=== PATIENT | female | born 1985 | race Caucasian/White ===

== ENCOUNTER 2024-12-15 17:41 | Emergency (ER) | payer SELFPAY ==
--- OUTSIDE RECORDS SUMMARY | 2024-09-23 09:00 | XMS_ITS ---
Author Organization [facility] Address [address] [place], [place] [id number] Care Team Providers Care Exchange Mechanic Name Role Phone Alisha Zaldivar Primary Care Provider Osorio Camarillo Unavailable [phone] Bertha Shipley Unavailable [phone] REASON FOR VISIT Thyroid Concerns Social History Sex Assigned At : Social History Observation Description Sex Assigned At Female Encounters Encounter Location Date Provider Diagnosis [address] [id number] 09/23 Bertha Shipley Plan Of Treatment No Information Progress Notes * Ijeoma STEPHENS MDOB:10/1984 (39 yo F)Acc No.[id number]:09/23/2024 Patient: Zaki Ijeoma DINH Provider: Taran Shipley :1985 A ge:39 Y S ex:Female Date:09/23/2024 Address:[facility] [address] [id number] Pcp:Alisha Zaldivar Subjective: * Chief Complaints: * 1 . Thyroid Concerns. * Medical History: Objective: * Vitals: Assessment: Plan: * Treatment: * Billing Information: * Visit Code: * Procedure Codes: * Electronic signature of CARLOS Brown on 12/15/2024 at 05:51 PM EDT Sign off status: Pending * Provider: Taran Shipley Date: 0 09/23/2024 Generated for Noah aguilar/Antelmo/eTransmitting on: 0 12/15/2024 05:51 PM EDT
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
[2024-12-15 17:45] VITALS: BP 145/90; PULSE 78; TEMP 38.8; O2SAT 98; BMI 52.5
--- OUTSIDE RECORDS SUMMARY | 2024-12-15 17:51 | XMS_ITS | Encounter Summary ---
Author Organization [facility] Address [id number] [address] [place] [address] Care Team Providers Care Remelt Sugar Boiler Name Role Phone Bertha Shipley STATE EPIDEMIOLOGIST-AERONAUTICS COMMISSION DIRECTOR Primary Care Provider +1- [phone] Encounter Details Date Type Department Care Team (Latest Contact Info) Description 12/10/2024 Travel Social History Tobacco Use Types Packs/Day Years [...] often do you attend chur ch or catholic services? Patient declined 03/09/2021 Do you belong to any clubs o r organizations such as tenriism groups, unions, fraternal or athletic groups, or [...] Answer Date Recorded Total Score 12 02/15/2022 [facility] - Occupational Stress [...] Recorded Do you need help finding a [facility] career center and/or a training program? [...] Start Date Job End Date NA at [employer] home Not on file Not on file Not on file denies occupational ds Not on file Not on file Not o n file documented as of this encounter Plan of Treatment Not on file documented as of this encounter Visit Diagnoses Not on filedocumented in this encounter Additional Health Concerns Assessment Noted Time PHQ-9 Depression Total Score: 12 022 2:03 PM EDT A Body Mass Index follow-up plan has been documented for the patient 11/28/2022 2:28 PM EDT documented as of this encounter Care Teams Remelt Sugar Boiler Relationship Specialty Start Date End Date Bertha Shipley APRN-CARLOS [address] [place] [address] PCP - General Family Medicine 12/10/24 documented as of this encounter
--- OUTSIDE RECORDS SUMMARY | 2024-12-15 17:51 | XMS_ITS | Clinical Summary ---
Author Organization [place] tem Address [facility] [id number] [address] [place] [address] Care Team Providers Care Prepper Name Role Phone Bertha Shipley DISCIPLINARY HEARING OFFICER-BANKRUPTCY PROCESSOR Primary Care Provider +1- [phone] Allergies Active Allergy Reactions Criticality Noted Date Comments Naproxen Shortness Of Breath,Other (See Comments) High 08/04/2014 Tachy but states she can't take ibuprofen??? Medications citalopram (CeleXA) 10 mg tabletIndications:A nxiety and depression Take 1 tablet (10 mg total) by mouth in the morning. 30 tablet 2 3 Active levothyroxine (SYNTHROID, LEVOTHROID) 25 MCG tabletIndications:A cquired hypothyroidism Take 1 tablet (25 mcg total) by mouth in the morning. 30 tablet 2 3 Active ibuprofen (MOTRIN) 800 mg tablet Take 1 tablet (800 mg total) by mouth every 6 (six) hours as needed for pain. 30 tablet 3 Active tiZANidine (ZANAFLEX) 4 mg tablet Take 1 tablet (4 mg total) by mouth every 8 (eight) hours as needed for muscle spasms. 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 Wears glasses Encounters Date Type Department Care Team Description 12/10/2024 3:48 PM EDT - 12/10/2024 5:34 PM EDT Emergency [facility] [address] [place] [address] Chills (Primary Dx) Discharge Disposition: Home 12/10/2024 Travel from Last 3 Months Immunizations Immunization Administration Dates Next Due Hep B, Adolescent or Pediatric 12/04/2002,2002 IPV 12/04/2002,10/30/2002 Influenza, Unspecified 04/29/2019 MMR 12/04/2002,10/30/2002 Td, Unspecified 12/04/2002,10/30/2002 Tdap 12/30/2017 Family History Medical History Relation Name Comments Osteoarthritis Father COPD Mother Diabetes type II Paternal Grandmother Relation Name Status Comments Father Alive Mother (Age age 64) Paternal Grandmother Social History Tobacco Use Types Packs/Day Years Used Date Smoking Tobacco: Never Smokeless Tobacco: Never Tobacco Cessation:Counseling Given: Not Answered Alcohol Use Standard Drinks/Week Comments No 0 [...] often do you attend chur ch or spiritism services? Patient declined 03/09/2021 Do you belong to any clubs o r organizations such as yarsani groups, unions, fraternal or athletic groups, or [...] Answer Date Recorded Total Score 12 02/15/2022 [facility] - [...] Recorded Do you need help finding a [facility] career center and/or a training program? [...] Start Date Job End Date NA at ns home Not on file Not on file Not on file denies occupational ds Not on file Not on file Not o n file Last Filed Vital Signs Vital Sign Reading [...] Mass Index 45.73 12/10/2024 4:00 PM EDT Plan of Treatment Health Maintenance Due Date Last Done Comments Adult BMI Follow Up Plan 2004 Pap Smear 2007 Depression Screening 02/15/2023 02/15/2022 COVID-19 Vaccine (2023-2 5 season) 2024 08/05/2020, 07/15/2020 Influenza Vaccine 03/16/2025 04/29/2019 Adult BMI Screening 12/10/2025 12/10/2024 Tobacco Screening 12/10/2025 12/10/2024 DTaP,Tdap and Td Vaccines (4 - Td or Tdap) 12/31/2027 12/30/2017, 12/04/2002, 10/30/2002 Medical Devices Not on file Procedures Procedure Name Priority Date/Time Associated Diagnosis Comments POCT , URINE (NUCG) Routine 12/10/2024 5:16 PM EDT POCT NURSING URINE MACROSCOPIC UA Routine 12/10/2024 5:14 PM EDT ER EXTRA URINE CULTURE STAT 5:06 PM EDT ER EXTRA URINE STAT 12/10/2024 5:06 PM EDT EXTRA TUBES BRADLEY TOP ON ICE Routine 12/10/2024 4:10 PM EDT EXTRA TUBES BLUE TOP Routine 12/10/2024 4:10 PM EDT EXTRA TUBES Routine 12/10/2024 4:10 PM EDT THYROID PROFILE INCLUDES TSH FT4 STAT 12/10/2024 4:10 PM EDT COMPREHENSIVE METABOLIC PANEL STAT 12/10/2024 4:10 PM EDT CBC WITH AUTO DIFFERENTIAL STAT 12/10/2024 4:10 PM EDT from Last 3 Months Results * POCT , urine (12/10/2024 5:16 PM EDT) POC Urine Negative Negative 12/10/2024 5:15 PM EDT [facility] Urine 12/10/2024 5:16 PM EDT 12/10/2024 5:15 PM EDT us POINT OF CARE TEST ORDERABLES Fi nal Result [facility] [address] [place] [address], [place] * (ABNORMAL) POCT Nursing Urine Macroscopic UA (12/10/2024 5:14 PM EDT) POC Urine Specific [place] 1.020 1.010, 1.015, 1.020, 1.025 12/10/2024 5:09 PM EDT [facility] POC Urine Leukocyte Esterase Negative Negative 12/10/2024 5:09 PM EDT [facility] POC Urine Nitrite Negative Negative 12/10/2024 5:09 PM EDT [facility] POC Urine pH 6.0 5.0, 6.0, 6.5, 7.0, 7.5, 8.0, 8.5, 5.5 12/10/2024 5:09 PM EDT [facility] POC Urine Protein Trace(A) Negative 12/10/2024 5:09 PM EDT [facility] POC Urine Glucose Negative Negative 12/10/2024 5:09 PM EDT [facility] POC Urine Ketones Negative Negative 12/10/2024 5:09 PM EDT [facility] POC Urine Urobilinogen 0.2 E.U./dL 12/10/2024 5:09 PM EDT [facility] POC Urine Bilirubin Negative Negative 12/10/2024 5:09 PM EDT [facility] POC Urine Blood/HGB Negative Negative 12/10/2024 5:09 PM EDT [facility] Urine 12/10/2024 5:14 PM EDT 12/10/2024 5:09 PM EDT us POINT OF CARE TEST ORDERABLES Fi nal Result Performing Organization Address City/[facility]/ZIP Co de Phone Number [address] [place] [address], [place] * Extra Urine Culture (12/10/2024 5:06 PM EDT) Extra Tube Auto Resulted 12/10/2024 7:01 PM EDT [facility] Urine Urine specimen collection, clean catch / Unknown 12/10/2024 5:06 PM EDT 12/10/2024 5:48 PM EDT us Aliyah Vargas DISCIPLINARY HEARING OFFICER-INFANTRY INDIRECT FIRE CREWMEMBER URINE ORDERABLES Final Res ult Performing Organization Address City/[facility]/ZIP Co de Phone Number [address] [place] [address], [place] * Extra Urine (12/10/2024 5:06 PM EDT) Extra Tube Auto Resulted 12/10/2024 7:01 PM EDT [facility] Urine Urine specimen collection, clean catch / Unknown 12/10/2024 5:06 PM EDT 12/10/2024 5:48 PM EDT us Aliyah Vargas DISCIPLINARY HEARING OFFICER-INFANTRY INDIRECT FIRE CREWMEMBER URINE ORDERABLES Final Res ult [address] [place] [address], [place] * Bradley Top On Ice (12/10/2024 4:10 PM EDT) Extra Tube Auto Resulted 12/10/2024 6:02 PM EDT [facility] Blood Venous blood / Unknown 12/10/2024 4:10 PM EDT 12/10/2024 4:13 PM EDT us Ld Tracy MD LAB BLOOD ORDERABLES Final Resu lt Performing Organization Address City/[facility]/ZIP Co de Phone Number [address] [place] [address], [place] * Light Blue Top (12/10/2024 4:10 PM EDT) Extra Tube Auto Resulted 12/10/2024 6:02 PM EDT [facility] Blood Venous blood / Unknown 12/10/2024 4:10 PM EDT 12/10/2024 4:13 PM EDT us Ld Tracy MD LAB BLOOD ORDERABLES Final Resu lt Performing Organization Address City/[facility]/ZIP Co de Phone Number [address] [place] [address], [place] * Thyroid profile includes TSH FT4 (12/10/2024 4:10 PM EDT) FREE T4 0.94 0.61 - 1.60 ng/dL 12/10/2024 4:54 PM EDT [facility] TSH 1.66 0.49 - 4.67 uIU/mL 12/10/2024 4:54 PM EDT [facility] Blood Venous blood / Unknown 12/10/2024 4:10 PM EDT 12/10/2024 4:12 PM EDT us Aliyah Vargas DISCIPLINARY HEARING OFFICER-INFANTRY INDIRECT FIRE CREWMEMBER LAB BLOOD ORDERABLES Final Result [facility] [address] [place] [address], [place] * CBC auto differential (12/10/2024 4:10 PM EDT) WBC 4.6 4 - 11 x10E9/L 12/10/2024 4:42 PM EDT [facility] RBC Count 4.03 3.8 - 5.2 X10E12/L 12/10/2024 4:42 PM EDT [facility] Hemoglobin 13.3 11.7 - 15.5 g/dL 12/10/2024 4:42 PM EDT [facility] Hematocrit 38.1 35 - 47 % 12/10/2024 4:42 PM EDT [facility] MCV 95 80 - 100 fL 12/10/2024 4:42 PM EDT [facility] MCH 33.0 27 - 34 pg 12/10/2024 4:42 PM EDT [facility] MCHC 34.8 32 - 36 g/dL 12/10/2024 4:42 PM EDT [facility] RDW 14.4 11.5 - 15 % 12/10/2024 4:42 PM EDT [facility] Platelet Count 156 150 - 450 X10E9/L 12/10/2024 4:42 PM EDT [facility] MPV 8.6 7 - 12 fL 12/10/2024 4:42 PM EDT [facility] % Bands Neutrophils 1 % 12/10/2024 4:42 PM EDT [facility] Comment:This is an appended report. These results have been appended to a previously preliminary verified report. Neutrophils Relatives 52 % 12/10/2024 4:42 PM EDT [facility] Comment:This is an appended report. These results have been appended to a previously preliminary verified report. Lymphocytes Relative 22 % 12/10/2024 4:42 PM EDT [facility] Comment:This is an appended report. These results have been appended to a previously preliminary verified report. Monocytes Relative 12 % 12/10/2024 4:42 PM EDT [facility] Comment:This is an appended report. These results have been appended to a previously preliminary verified report. Eosinophils Relative 2 % 12/10/2024 4:42 PM T [facility] Comment:This is an appended report. These results have been appended to a previously preliminary verified report. Atypical Lymphocytes Relative 11 % 12/10/2024 4:42 PM EDT [facility] Comment:This is an appended report. These results have been appended to a previously preliminary verified report. Neutrophils Absolute (M) 2.4 1.5 - 6.6 10*3/uL 12/10/2024 4:42 PM T [facility] Comment:This is an appended report. These results have been appended to a previously preliminary verified report. Lymphocytes Absolute 1.5 1.0 - 3.5 10*3/uL 12/10/2024 4:42 PM T [facility] Comment:This is an appended report. These results have been appended to a previously preliminary verified report. Monocytes Absolute 0.6 0.0 - 0.9 10*3/uL 12/10/2024 4:42 PM T [facility] Comment:This is an appended report. These results have been appended to a previously preliminary verified report. Eosinophils Absolute 0.1 0.0 - 0.4 10*3/uL 12/10/2024 4:42 PM T [facility] Comment:This is an appended report. These results have been appended to a previously preliminary verified report. RBC Morphology Normal 12/10/2024 4:42 PM EDT [facility] Comment:This is an appended report. These results have been appended to a previously preliminary verified report. Differential Type MANUAL DIFFERENTIAL 12/10/2024 4:42 PM EDT [facility] Comment:This is an appended report. These results have been appended to a previously preliminary verified report. Blood Venous blood / Unknown 12/10/2024 4:10 PM EDT 12/10/2024 4:12 PM EDT us Aliyah Vargas DISCIPLINARY HEARING OFFICER-INFANTRY INDIRECT FIRE CREWMEMBER LAB BLOOD ORDERABLES Final Result [facility] [address] [place] [address], * (ABNORMAL) Comprehensive metabolic panel (12/10/2024 4:10 PM EDT) SODIUM 131(L) 134 - 146 mmol/L 12/10/2024 4:35 PM EDT [facility] POTASSIUM 3.6 3.5 - 5.0 mmol/L 12/10/2024 4:35 PM EDT [facility] CHLORIDE 98 98 - 109 mmol/L 12/10/2024 4:35 PM EDT [facility] CARBON DIOXIDE 26 22 - 32 mmol/L 12/10/2024 4:35 PM EDT [facility] ANION GAP 7 5 - 15 mmol/L 12/10/2024 4:35 PM EDT [facility] BLOOD UREA NITROGEN 11 5 - 23 mg/dL 12/10/2024 4:35 PM EDT [facility] CREATININE 0.84 0.40 - 1.00 mg/dL 12/10/2024 4:35 PM EDT [facility] Comment:METHOD TRACEABLE TO IDMS STANDARD GLUCOSE 167(H) 65 - 99 mg/dL 12/10/2024 4:35 PM EDT [facility] CALCIUM 8.3(L) 8.5 - 10.5 mg/dL 12/10/2024 4:35 PM EDT [facility] TOTAL PROTEIN 6.9 6.0 - 8.0 g/dL 12/10/2024 4:35 PM EDT [facility] ALBUMIN 3.7 3.2 - 5.3 g/dL 12/10/2024 4:35 PM EDT [facility] ALKALINE PHOSPHATASE 56 39 - 130 U/L 12/10/2024 4:35 PM EDT [facility] AST 44(H) <=41 U/L 12/10/2024 4:35 PM EDT [facility] ALT 56(H) <=31 U/L 12/10/2024 4:35 PM EDT [facility] BILIRUBIN,TOTAL 0.7 0.3 - 1.2 mg/dL 12/10/2024 4:35 PM EDT [facility] EGFR Non-Race Dependent >90 >=60 ml/min/1.7 3sq.m 12/10/2024 4:35 PM EDT [facility] Comment: eGFR not reported due to non-numeric value for Creatinine. Reported eGFR is based on the CKD-EPI 2020 equation that does not use a race coefficient. Blood Venous blood / Unknown 12/10/2024 4:10 PM EDT 12/10/2024 4:12 PM EDT us Aliyah Vargas DISCIPLINARY HEARING OFFICER-INFANTRY INDIRECT FIRE CREWMEMBER LAB BLOOD ORDERABLES Final Result [facility] [address] [place] [address], from Last 3 Months Advance Directives * Full Code (Latest Code Status on File) Date Activated Date Inactivated Comments 12/28/2017 12:02 PM 01/01/2018 8:49 PM Care Teams Prepper Relationship Specialty Start Date End Date Bertha Shipley APRN-FNP [address] [place] [address] PCP - General Family Medicine 12/10/24
--- OUTSIDE RECORDS SUMMARY | 2024-12-15 17:51 | XMS_ITS | Encounter Summary ---
Author Organization [facility] tem Address [id number] [address] [place] [address] Care Team Providers Care Commissary Manager Name Role Phone Bertha Shipley AVIATION SAFETY TECHNICIAN-INSOLE RASPER Primary Care Provider +1- [phone] Reason for Visit * Reason Onset Date Comments Med Refill 09/25/2019 Encounter Details Date Type Department Care Team (Late st Contact Info) Description 09/25/2019 Refill [facility] [address] [facility] [place] [address] Linda Ly DO [address] [place] [address] [place] [id number] Acquired hypothyroidism Social History Tobacco Use Types Packs/Day Years Used Date Smoking Tobacco: Never Smokeless Tobacco: Never Alcohol Use Standard Drinks/Week Comments No 0 (1 standard drink = 0.6 oz pur e alcohol) PHQ-2 Answer Date Recorded PHQ-2 Score 0 07/12/2018 Childcare Answer Date Recorded Childcare Unknown 12/18/2018 Employment Answer Date Recorded Employment Unknown 12/18/2018 Comments No Sex and Gender Information Value Date Recorded Sex Assigned at Not on file Legal Sex Female 12:07 PM EDT Gender Identity Not on file Sexual Orientation Not on file Occupation Industry Job Start Date Job End Date NA at [employer] [place] Not on file Not on file Not on file denies occupational ds Not on file Not on file Not o n file documented as of this encounter Plan of Treatment Not on file documented as of this encounter Visit Diagnoses Diagnosis Acquired hypothyroidism Unspecified hypothyroidism documented in this encounter Additional Health Concerns Infection Onset Date Last Indicated Resolved Time COVID-19 Rule-Out 04/19/2022 04/19/2022 04/19/2022 12:03 PM EDT COVID-19 Positive 04/19/2022 04/19/2022 05/10/2022 11:12 PM EDT COVID-19 Rule-Out 05/12/2023 05/12/2023 05/12/2023 9:26 PM EDT COVID-19 Positive 05/12/2023 05/12/2023 06/02/2023 11:12 PM EST Assessment Noted Time PHQ-9 Depression Total Score: 0 09/08/19 20 4:18 PM EST A Body Mass Index follow-up plan has been documented for the patient 09/09/2019 11:52 AM EST documented as of this encounter Care Teams Commissary Manager Relationship Specialty Start Date End Date Bertha Shipley APRN-CARLOS [address] [place] [address] PCP - General Family Medicine 12/10/24 documented as of this encounter
--- OUTSIDE RECORDS SUMMARY | 2024-12-15 17:51 | XMS_ITS | Encounter Summary ---
Author Organization [facility] Address [facility] [id number] [address] [place] [address] Care Team Providers Care Debone Processing Supervisor Name Role Phone Bertha Shipley SMALL PARTS SHAPER OPERATOR-ILLUMINATOR Primary Care Provider +1- [phone] Encounter Details Date Type Department Care Team (Late st Contact Info) Description 05/10/2022 [facility]phone [facility] [address] [facility] [place] [address] Jaclyn Perez MA Social History Tobacco Use Types Packs/Day Years [...] week 03/09/2021 How often do you attend [facility] or advent services? Patient declined 03/09/2021 Do you belong to any clubs o r organizations such as jewish groups, unions, fraternal or athletic groups, or [...] care, and heating? Not hard at all 03/09/2021 PHQ-2 Answer Date Recorded Total Score 12 02/15/2022 [facility] - Occupational Stress Questionnaire Answer Date Recorded [...] from medical appointments or from getting medications? No 02/14 In the past 12 months, has l ack of transportation kept you from meetings, work, or from getting things needed for daily living? No 03/09/2021 Childcare Answer Date Recorded Do problems getting child ca re make it difficult for you to work or study? No 03/09/2021 Employment Answer Date Recorded Do you need help finding a [facility] career center and/or a training program? No 03/09/2021 Purpose - Life Answer Date Recorded I [...] Start Date Job End Date NA at [employer] [place] Not on file Not on file Not on file denies occupational ds Not on file Not on file Not o n file COVID-19 Exposure Response Date Recorded In the last month, have you been in contact with someone who was confirmed or suspected to have Coronavirus / COVID-19? Yes 04/19/2022 10:44 AM EDT documented as of this encounter Miscellaneous Notes * Telephone Encounter - Jaclyn Perez MA - 05/10/2022 2:33 PM EDT NO SHOW 05-10-22, 04-19-21, 07-08-19, letter pended documented in this encounter Plan of Treatment Not on file documented as of this encounter Visit Diagnoses Not on filedocumented in this encounter Additional Health Concerns Infection Onset Date Last Indicated Resolved Time COVID-19 Positive 04/19/2022 04/19/2022 05/10/2022 11:12 PM EDT COVID-19 Rule-Out 05/12/2023 05/12/2023 05/12/2023 9:26 PM EDT COVID-19 Positive 05/12/2023 05/12/2023 06/02/2023 11:12 PM EST Assessment Noted Time PHQ-9 Depression Total Score: 12 022 2:03 PM EDT A Body Mass Index follow-up plan has been documented for the patient 02/28/2022 12:50 PM EDT documented as of this encounter Care Teams Debone Processing Supervisor Relationship Specialty Start Date End Date Bertha Shipley APRN-FNP [address] [place] [address] PCP - General Family Medicine 12/10/24 documented as of this encounter
--- OUTSIDE RECORDS SUMMARY | 2024-12-15 17:51 | XMS_ITS | Encounter Summary ---
Author Organization [employer] [facility] Address [facility] [id number] [address] [place] [address] Care Team Providers Care Sports Administrator Name Role Phone Bertha Shipley RESEARCH ELECTRICIAN-GLASS CUTTER Primary Care Provider +1- [phone] Encounter Details Date Type Department Care Team (Late st Contact Info) Description 03/31/2021 [facility] [address] [facility] [place] [address] Chey Gill CMA Social History Tobacco Use Types Packs/Day Years [...] week 03/09/2021 How often do you attend [facility] or sabianist services? Patient declined 03/09/2021 Do you belong to any clubs o r organizations such as anabaptist groups, unions, fraternal or athletic groups, or [...] 03/09/2021 PHQ-2 Answer Date Recorded Total Score 13 03/09/2021 [facility] - Occupational Stress Questionnaire Answer Date Recorded [...] Recorded Do you need help finding a [facility] career center and/or a training program? [...] Start Date Job End Date NA at [employer] [facility] Not on file Not on file Not on file denies occupational ds Not on file Not on file Not o n file documented as of this encounter Miscellaneous Notes * Telephone Encounter - Chey Gill CMA - 03/31/2021 12:13 PM EDT Pt has COVID symptoms and work told her she needs a COVID swab. I told pt she needs to call local health dept or hospital, as she is currently in [place]. I said we can order and send it, but she needs to provide fax number of where she will get tested. * Telephone Encounter - MARI Valiente - 03/31/2021 12:13 PM EDT Since she resides in [place], there are urgent cares and numerous drive thru pharmacies who will provide this. My order will not be valid in [place]. * Telephone Encounter - Chey Gill CMA - 03/31/2021 12:13 PM EDT left detailed message ~[facility] documented in this encounter Plan of Treatment [...] Assessment Noted Time PHQ-9 Depression Total Score: 13 021 4:47 PM EDT A Body Mass Index follow-up plan has been documented for the patient 03/14/2021 2:43 PM EDT documented as of this encounter Care Teams Sports Administrator Relationship Specialty Start Date End Date Bertha Shipley APRN-FNP [address] [place] [address] PCP - General Family Medicine 12/10/24 documented as of this encounter
--- OUTSIDE RECORDS SUMMARY | 2024-12-15 17:52 | XMS_ITS | Patient Health Record ---
Author Organization [facility] Address [address] [place], [place] [id number] Care Team Providers Care Tool Polishing Machine Operator Name Role Phone [employer] odomsha Primary Care Provider [phone] Osorio Camarillo Unavailable [phone] Bertha Shipley Unavailable [phone] Allergies No Known Allergies Reason For Referral No Information Medications Medication SIG (Take, Route, Frequency, Duration) Notes Start Date End Date Status Levothyroxine Sodium 25 MCG 1 tablet in the morning on an empty stomach Oral Once a day for 30 days Active metFORMIN HCl 500 MG 1 tablet with a raymon l Orally three times daily 04/05/2023 Not-Taking hydrOXYzine Pamoate 50 MG 1 capsule at b edtime as needed Orally Once a day for 30 days 04/10/2023 Active busPIRone HCl 5 MG 1 tablet upon wake a nd 1 tablet at 5-6PM Orally Twice a day for 30 days 04/10/2023 Active Sertraline HCl 50 MG 1 tablet Orally Onc e a day in the [facility] for 30 days 04/10/2023 Active Social History Tobacco Use: Social History Observation Description Date Details (start date - stop date) Current Smoker 03/16/2022 - NA Sex Assigned At : Social History Observation Description Sex Assigned At Female Tobacco Use/Smoking Question Answer Notes Tobacco use: current every day smoker When did you start smoking? 03/16/2022 Problems Problem Type SNOMED Code ICD Code Onset Dates Problem Status W/U Status Risk Notes Problem 10684268 Anxiety (F41.9) Active confirmed Problem 69567520 PTSD (post-traumatic stress disorder) (F43.10) Active confirmed Problem Insomnia (369335911) Insomnia (G47.00) Active confirmed Problem 72620565 Hypothyroidism, unspecified type (E03.9) Active confirmed Problem 081949835 BMI 45.0-49.9, adult (Z68.42) Active confirmed Problem Depressed (07394331) Depressed (F32.9) Active confirmed Problem Cannabis abuse (76744488) Cannabis abuse (F12.10) Active confirmed Problem 51606435 Difficulty concentrating (R41.840) Active confirmed Plan Of Treatment No Information Medical (General) History Medical History History ICD Code PCOS anxiety depression PTSD hypothyroidism Depression with anxiety F41.8 Surgical History Surgery Date(Month/Year) section x4 tonsillectomy partial thyroid removed dilatation and curettage hernia repair left knee repair
--- OUTSIDE RECORDS SUMMARY | 2024-12-15 17:52 | XMS_ITS | Encounter Summary ---
Author Organization [employer] [facility] tem Address [id number] [address] [place] [address] Care Team Providers Care Operations Intelligence Superintendent Name Role Phone Bertha Shipley POWERHOUSE MECHANIC SUPERVISOR-WEB MERCHANDISER Primary Care Provider [phone]- [phone] Encounter Details Date Type Department Care Team (Late st Contact Info) Description 03/26/2019 [facility]phone [facility] [address] [place] [address] Linda Ly DO [address] [place] [email or web address] [address] [address] Social History Tobacco Use Types Packs/Day Years [...] 04/19/2022 12:03 PM EDT COVID-19 Positive 04/19/2022 04/19/202205/1005/10/2022 11:12 PM EDT COVID-19 Rule-Out 05/12/2023 05/12/2023 05/12/2023 9:26 PM EDT COVID-19 Positive 05/12/2023 05/12/2023 06/02/2023 11:12 PM EST Assessment Noted Time PHQ-9 Depression Total Score: 0 02/20/20 11:00 AM EDT documented as of this encounter Care Teams Operations Intelligence Superintendent Relationship Specialty Start Date End Date Bertha Shipley APRN-CARLOS [address] [place] [id number] PCP - General Family Medicine 12/10/24 documented as of this encounter
--- OUTSIDE RECORDS SUMMARY | 2024-12-15 17:52 | XMS_ITS | Encounter Summary ---
Author Organization [facility] Address [id number] [address] [place] [address] Care Team Providers Care Nuclear Medicine Medical Director Name Role Phone Bertha Shipley Primary Care Provider +1- [phone] Encounter Details Date Type Department Care Team (Late st Contact Info) Description 01/01/2018 Documentation [facility] [address] [place] [address] Susu Guerra RN Social History Tobacco Use Types Packs/Day Years Used Date Smoking Tobacco: Never Smokeless Tobacco: Never Alcohol Use Standard Drinks/Week Comments No 0 (1 standard drink = 0.6 oz pur e alcohol) Comments No Sex and Gender Information Value Date Recorded Sex Assigned at Not on file Legal Sex Female 12:07 PM EDT Gender Identity Not on file Sexual Orientation Not on file documented as of this encounter Plan [...] Positive 05/12/2023 05/12/2023 06/02/2023 11:12 PM EST documented as of this encounter Care Teams Nuclear Medicine Medical Director Relationship Specialty Start Date End Date Bertha Shipley APRN-FNP [address] [place] [address] PCP - General Family Medicine 12/10/24 documented as of this encounter
--- OUTSIDE RECORDS SUMMARY | 2024-12-15 17:52 | XMS_ITS | Encounter Summary ---
Author Organization [employer] [facility] tem Address [id number] [address] [place] [address] Care Team Providers Care Batch Freezer Operator Name Role Phone Bertha Shipley GANG PUNCH OPERATOR-CARDIAC REHAB NURSE Primary Care Provider +1- [phone] Encounter Details Date Type Department Care Team (Late st Contact Info) Description 10/06/2018 [facility]phone [facility] [address] [place] [address] Linda Ly DO [address] [place] [address] Social History Tobacco Use Types Packs/Day Years Used Date Smoking Tobacco: Never Smokeless Tobacco: Never Alcohol Use Standard Drinks/Week Comments No 0 (1 standard drink = 0.6 oz pur e alcohol) PHQ-2 Answer Date Recorded PHQ-2 Score 0 07/12/2018 Childcare Answer Date Recorded Childcare Unknown 10/06/2018 Employment Answer Date Recorded Employment Unknown 10/06/2018 Comments No Sex and Gender Information Value [...] Noted Time PHQ-9 Depression Total Score: 0 07/24/19 19 4:00 PM EST documented as of this encounter Care Teams Batch Freezer Operator Relationship Specialty Start Date End Date Bertha Shipley APRN-CARLOS [address] [place] [id number] PCP - General Family Medicine 12/10/24 documented as of this encounter
--- OUTSIDE RECORDS SUMMARY | 2024-12-15 17:52 | XMS_ITS | Encounter Summary ---
Author Organization [employer] [facility] Address [id number] [address] [place] [address] Care Team Providers Care Social Service Coordinator Name Role Phone Bertha Shipley TELESCOPE REPAIRER-ELECTROLYSIS NEEDLE OPERATOR Primary Care Provider +1- [phone] Encounter Details Date Type Department Care Team (Late st Contact Info) Description 05/20/2020 [facility] [address] [facility] [place] [address] Daniela Weems CMA Social History Tobacco Use Types Packs/Day Years Used Date Smoking Tobacco: Never Smokeless Tobacco: Never Alcohol Use Standard Drinks/Week Comments No 0 (1 standard drink = 0.6 oz pur e alcohol) Social Connection and Isolat ion Panel [NHANES] Answer Date Recorded In a typical week, how many times do you talk on the phone with family, friends, or neighbors? Once a week 11/24/2019 How often do you get togethe r with friends or relatives? Never 11/24/2019 How often do you attend chur or nondenominational services? More than 4 times per year 11/24/2019 Do you belong to any clubs o r organizations such as mormon groups, unions, fraternal or athletic groups, or school groups? No 11/24/2019 How often do you attend meet ings of the clubs or organizations you belong to? Never 11/24/2019 Are you , , di vorced, , never , or living with a partner? 11/24/2019 AUDIT-C Answer Date Recorded Q1: How often do you have a drink containing alc ohol? Never 11/24/2019 Q2: How many drinks containi ng alcohol do you have on a typical day when you are drinking? Patient declined 11/24/2019 Q3: How often do you have si x or more drinks on one occasion? Never 11/24/2019 Overall Financial Resource Strain (CARDIA) Answe r Date Recorded How hard is it for you to pa y for the very basics like food, housing, medical care, and heating? Not hard at all 11/24/2019 PHQ-2 Answer Date Recorded PHQ-2 Score 0 05/11/2020 [facility] [employer] [facility] [employer] - Occupational Stress Questionnaire Answer Date Recorded Do you feel stress - tense, restless, nervous, or anxious, or unable to sleep at night because your mind is troubled all the time - these days? To some extent 11/24/2019 Exercise Vital Sign Answer Date Recorde d On average, how many days pe r week do you engage in moderate to strenuous exercise (like a brisk walk)? 2 days 11/24/2019 On average, how many minutes do you engage in exercise at this level? 30 min 11/24/2019 PRAPARE - Transportation Answer Date Re corded In the past 12 months, has l ack of transportation kept you from medical appointments or from getting medications? No 11/13 In the past 12 months, has l ack of transportation kept you from meetings, work, or from getting things needed for daily living? No 11/24/2019 Childcare Answer Date Recorded Do problems getting child ca re make it difficult for you to work or study? No 11/24/2019 Employment Answer Date Recorded Do you need help finding a [facility] and/or a training program? No 11/24/2019 Education Answer Date Recorded What is the [...] Start Date Job End Date NA at [employer] Not on file Not on file Not on file denies occupational ds Not on file Not on file Not o n file COVID-19 Exposure Response Date Recorded In the last month, have you been in contact with someone who was confirmed or suspected to have Coronavirus / COVID-19? No / Unsure 05/20/2020 9:39 AM EST documented as of this encounter Miscellaneous Notes * Telephone Encounter - Daniela Weems CMA - 05/20/2020 10:46 AM EST ----- Message from MARI Valiente sent at 05/20/2020 10:40 AM EST ----- Please let patient know her gallbladder is normal. * Telephone Encounter - Daniela Weems CMA - 05/20/2020 10:46 AM EST Done at 1047AM. Patient expressed clear understanding Daniela Weems CMA 05/20/20 1048 documented in this encounter Plan of Treatment [...] Noted Time PHQ-9 Depression Total Score: 0 05/11/20 20 3:11 PM EDT A Body Mass Index follow-up plan has been documented for the patient 05/11/2020 6:28 PM EDT documented as of this encounter Care Teams Social Service Coordinator Relationship Specialty Start Date End Date Bertha Shipley APRN-CARLOS [address] [place] [address] PCP - General Family Medicine 12/10/24 documented as of this encounter
--- NOTE | 2024-12-15 17:57 | ED.ABDPAIN1 ---
HPI - Abdominal Pain General Chief Complaint: Abdominal Pain Stated Complaint: ABDOMINAL PAIN Time Seen by Provider: 12/15/24 17:51 Source: patient Mode of arrival: walk-in Limitations: no limitations History of Present Illness HPI narrative: 39 year old female presents to the ED for low abd pain, N/V, fever. Onset was 12/10/24. Denies diarrhea, urinary symptoms, cough, congestion, CP, SOB. States she was evaluated at another hospital the day of the onset of her symptoms; states she had blood work and a urinalysis completed. Denies chance of . Reports four c-sections and one hernia repair surgery. She took 400 mg Motrin at 1600. Records were obtained from here visit to [facility] on 12/10[facility]. She was evaluated there for chills. She had CBC, CMP, TSH, T4, and urinalysis completed during the visit. Related Data Previous Rx's ?Medication ?Instructions ?Recorded ondansetron 4 mg disintegrating 4 mg PO Q8H PRN nausea and 12/15/24 tablet vomiting 4 days #16 tabs Allergies Allergy/AdvReac Type Severity Reaction Status Date / Time No Known Drug Allergies Allergy Verified 12/15/24 17:49 Review of Systems ROS Constitutional Reports: fever and chills; Denies: fatigue Ears, nose, mouth, and throat Denies: throat pain or neck pain Cardiovascular Denies: chest pain Respiratory Denies: shortness of breath or cough Gastrointestinal Reports: abdominal pain, nausea and vomiting; Denies: diarrhea Genitourinary Denies: painful urination, urinary frequency, urinary urgency, urinary incontinence or blood in urine Musculoskeletal Denies: back pain or neck pain Integumentary/Breast Denies: rash Neurological Denies: headache or dizziness PFSH PFSH Social History Little interest or pleasure in doing things: not at all Feeling down, depressed, or hopeless: not at all Exam Constitutional Vital Signs, click to edit/add: Last Vital Signs Temp 102.3 F H 12/15/24 19:13 Pulse 98 H 12/15/24 19:13 Resp 20 12/15/24 19:13 BP 116/78 12/15/24 19:13 Pulse Ox 97 12/15/24 19:13 O2 Del Method Room Air 12/15/24 19:13 Common normals: no apparent distress and oriented x3 General appearance: cooperative HENMT Common normals: moist oral mucous membranes Eye Common normals: conjunctivae normal and no scleral icterus Neck & C-Spine Common normals: supple Chest Chest: symmetrical chest wall rise Respiratory Common normals: normal respiratory effort and clear to auscultation bilaterally Effort & inspection: able to speak in complete sentences and symmetric chest movement Cardio Common normals: regular rate and regular rhythm GI Common normals: Normal to inspection, nondistended, normoactive bowel sounds present and soft to palpation Palpation: tender Details: LLQ and RLQ Neuro Common normals: oriented x3, moves all extremities and no focal motor deficits Sensorium/orientation: awake and alert Speech: speech normal Course Vital Signs Vital signs: Vital Signs Temperature 101.8 F H 12/15/24 17:45 Pulse Rate 78 12/15/24 17:45 Respiratory Rate 20 12/15/24 17:45 Blood Pressure 145/90 H 12/15/24 17:45 Pulse Oximetry 98 12/15/24 17:45 Oxygen Delivery Method Room Air 12/15/24 17:45 Temperature 102.3 F H 12/15/24 19:13 Pulse Rate 98 H 12/15/24 19:13 Respiratory Rate 20 12/15/24 19:13 Blood Pressure 116/78 12/15/24 19:13 Pulse Oximetry 97 12/15/24 19:13 Oxygen Delivery Method Room Air 12/15/24 19:13 MDM - Abdominal Pain MDM Narrative Medical decision making narrative: WBC count was unremarkable. Urinalysis was unremarkable. CT scan was negative for acute findings; see below. Findings were discussed with the patient. She was given IV fluids, Zofran, Tylenol and Toradol with improvement. A prescription was provided for Zofran. Follow up with pcp for a recheck, further evaluation and treatment. Return to the ED if condition worsens. Differential Diagnosis Differential diagnosis: Likely abdominal pain, acute appendicitis, calculus of kidney, diverticulitis, gastroenteritis, pancreatitis and small bowel obstruction Medical Records Attestation: I reviewed the patient's medical records. Lab Data Attestation: I reviewed the patient's lab results. Labs: Lab Results 12/15/24 12/15/24 Range/Units 18:04 18:05 WBC 8.0 (4.0-11.0) 10^3/uL RBC 3.97 L (4.20-5.40) 10^6/uL Hgb 13.0 (12.0-16.0) g/dL Hct 37.8 (36.0-48.0) % MCV 95.2 (81.0-99.0) fL MCH 32.7 (26.7-34.0) pg MCHC 34.4 (29.9-35.2) g/dL RDW 13.4 (11.0-15.0) % Plt Count 143 L (150-450) 10^3/uL MPV 11.2 (9.5-13.5) fL Seg Neuts % (Manual) 41.0 L (43.0-75.0) Band Neutrophils % 1.0 (0-5) % Lymphocytes % (Manual) 47.0 (20.5-60.0) % Atypical Lymphs % (Man) 5.0 % Monocytes % (Manual) 4.0 (1.7-12.0) % Eosinophils % (Manual) 2.0 (0.9-7.0) % Basophils % (Manual) 0.0 L (0.2-2.0) % Neutrophils # (Manual) 3.28 (1.4-6.5) 10^3/uL Band Neutrophils # 0.1 (0.0-0.3) 10^3/uL Lymphocytes # (Manual) 3.76 (1.20-3.80) 10^3/uL Abs Atypical Lymphs Man 0.40 Monocytes # (Manual) 0.32 (0.30-0.80) 10^3/uL Eosinophils # (Manual) 0.16 (0.00-0.70) 10^3/uL Basophils # (Manual) 0.00 (0.00-0.10) 10^3/uL Sodium 138 (136-145) mmol/L Potassium 4.0 (3.5-5.1) mmol/L Chloride 99 (98-107) mmol/L Carbon Dioxide 30.2 (21.0-32.0) mmol/L Anion Gap 12.8 BUN 13.0 (7.0-18.0) mg/dL Creatinine 0.88 (0.55-1.02) mg/dL Est GFR ( Amer) >60 (>=60 mL/min/1.73m^2) Est GFR (Non-Af Amer) >60 (>=60 mL/min/1.73m^2) BUN/Creatinine Ratio 14.8 Glucose 122 H (74-106) mg/dL Calcium 9.0 (8.5-10.1) mg/dL Total Bilirubin 0.6 (0.2-1.0) mg/dL AST 58 H (15-37) U/L ALT 106 H (14-59) U/L Alkaline Phosphatase 81 (46-116) U/L Total Protein 7.0 (6.4-8.2) g/dL Albumin 3.2 L (3.4-5.0) g/dL Globulin 3.8 g/dL Albumin/Globulin Ratio 0.8 Lipase 34.0 (16.0-77.0) U/L Urine Color Yellow (YELLOW) Urine Clarity Clear (CLEAR) Urine pH 6.0 (5.0-9.0) Ur Specific Jeffers >=1.030 A (1.005-1.025) Urine Protein Trace (NEG/TRACE) mg/dL Urine Glucose (UA) Negative (NEGATIVE) mg/dL Urine Ketones Trace A (NEGATIVE) mg/dL Urine Occult Blood Negative (NEGATIVE) Urine Nitrite Negative (NEGATIVE) Urine Bilirubin Negative (NEGATIVE) Urine Urobilinogen 0.2 (0.2-1.0) EU/dL Ur Leukocyte Esterase Negative (NEGATIVE) Urine HCG, Qual Negative (NEGATIVE) Imaging Data CT scan - abdomen: Attestation: I have reviewed the pertinent imaging results. Radiologist's impression: ITS Impressions Abdomen/Pelvis CT 12/15/24 18:57 IMPRESSION: No acute findings. Fatty hepatomegaly. Splenomegaly. Punctate right nephrolithiasis. Normal appendix. Impression dictated by: Howard Beltran M.D. 12/15/2024 7:08 PM Dictation Location: [place] [address] Electronically authenticated by: [id number] Y Date: 12/15/2024 19:08 Discharge Plan Discharge Chief Complaint: Abdominal Pain Clinical Impression: Abdominal pain, Nausea and vomiting, Fever Patient Disposition: Home, Self-Care Time of Disposition Decision: 20:22 Condition: Good Mode of Transportation: Private Vehicle Prescriptions / Home Meds: New ondansetron 4 mg tablet,disintegrating 4 mg PO Q8H PRN (Reason: nausea and vomiting) 4 Days Qty: 16 0RF Print Language: Chinese Instructions: Fever in Adults (ED), Acute Nausea and Vomiting (ED), Abdominal Pain (ED) Additional Instructions: Return to the ER for worsening symptoms. Take Tylenol and/or Motrin as directed for your fever. Referrals: [facility] [Primary Care Provider, Unknown] - 1 week
[2024-12-15] MEDS: 0.9 % SODIUM CHLORIDE 1,000 ML 999 ML IV (18:10)
[2024-12-15] MEDS: ONDANSETRON PF 4 MG/2 ML VIAL IV (18:11)
[2024-12-15 18:21] LABS: Hematocrit 37.8 % (36.0-48.0); Mean Corpuscular HGB Conc 34.4 g/dL (29.9-35.2); Mean Corpuscular Hemoglobin 32.7 pg (26.7-34.0); Mean Corpuscular Volume 95.2 fL (81.0-99.0); Mean Platelet Volume 11.2 fL (9.5-13.5); Platelet Count 143 10^3/uL (150-450); Red Blood Count 3.97 10^6/uL (4.20-5.40); Red Cell Distribution Width 13.4 % (11.0-15.0)
[2024-12-15 18:23] LABS: Bilirubin Urine NEGATIVE (NEGATIVE); Blood Urine NEGATIVE (NEGATIVE); Clarity Urine CLEAR (CLEAR); Color Urine YELLOW (YELLOW); Glucose Urine UA NEGATIVE (NEGATIVE); Ketones Urine TRACE mg/dL (NEGATIVE); Leukocyte Esterase Urine NEGATIVE (NEGATIVE); Nitrite Urine NEGATIVE (NEGATIVE); Protein Urine TRACE mg/dL (NEG/TRACE); Specific Gravity Urine >=1.030 (1.005-1.025); Urine Microscopic Indicated NO; Urobilinogen Urine 0.2 EU/dL (0.2-1.0)
[2024-12-15 18:25] LABS: HCG Qualitative Urine* NEGATIVE (NEGATIVE); Internal Control Within Normal Limits
[2024-12-15 18:38] LABS: Alanine Aminotransferase 106 U/L (14-59); Albumin Globulin Ratio 0.8; Albumin Level 3.2 g/dL (3.4-5.0); Alkaline Phosphatase 81 U/L (46-116); Anion Gap 12.8; Aspartate Amino Transferase 58 U/L (15-37); BUN Creatinine Ratio 14.8; Bilirubin Total 0.6 mg/dL (0.2-1.0); Carbon Dioxide 30.2 mmol/L (21.0-32.0); Chloride 99 mmol/L (98-107); Estimated GFR (African America >60 (>=60 mL/min/1.73m^2); Estimated GFR (Non-African Ame >60 (>=60 mL/min/1.73m^2); Globulin 3.8 g/dL; Glucose 122 mg/dL (74-106); Sodium 138 mmol/L (136-145)
[2024-12-15 18:42] LABS: Band Neutrophils Absolute 0.1 10^3/uL (0.0-0.3); Segmented Neut Absolute Manual 3.28 10^3/uL (1.4-6.5)
[2024-12-15 18:43] LABS: Eosinophils Absolute Manual 0.16 10^3/uL (0.00-0.70); Lymphocytes Absolute Manual 3.76 10^3/uL (1.20-3.80); Monocytes Absolute Manual 0.32 10^3/uL (0.30-0.80)
--- NOTE | 2024-12-15 18:57 | CT_ITS ---
The [address] [address] Patient Name: BERNY MAKI MRN: [id number] date: 1985 Sex: F Assigned Patient Location: ED.MAIN Current Patient Location: ED.MAIN Accession/Order Number: [id number] Exam Date: 12/15/2024 19:02 Report Date: 12/15/2024 19:08 At the request of: RINKU BAER Procedure: CT abdomen pelvis w con CT Abdomen and Pelvis withcontrast TECHNIQUE: Axial imaging with 2-D reconstruction.100 cc of Omnipaque 300. The CT exam was performed using one or more the following dose reduction techniques: Automated exposure control, adjustment of the MA and/or Kv according to patient size, or use of the iterative reconstruction technique. COMPARISON: None History: Right lower quadrant pain since Sunday. Fever. LIMITATIONS: None LOWER THORAX Unremarkable LIVER: Hepatic steatosis hepatomegaly GALLBLADDER: No gallbladder abnormality identified. BILE DUCTS: No dilatation SPLEEN: Splenomegaly with length of 16.6 cm PANCREAS: Unremarkable ADRENAL GLANDS: Unremarkable KIDNEYS:Punctate right nephrolithiasis. No hydronephrosis AORTA: No abdominal aortic aneurysm identified. RETROPERITONEUM: No significant retroperitoneal abnormalities identified. MESENTERY:Unremarkable SMALL BOWEL: The small bowel loops are nondistended. APPENDIX: The appendix is normal. COLON: Unremarkable URINARY BLADDER: Urinary bladder is unremarkable. REPRODUCTIVE SYSTEM: Reproductive structures are unremarkable. PNEUMOPERITONEUM: None PERITONEAL FLUID:None BONY STRUCTURES: Unremarkable ABDOMINAL WALL: Unremarkable CT/CT abdomen pelvis w con IMPRESSION: No acute findings. Fatty hepatomegaly. Splenomegaly. Punctate right nephrolithiasis. Normal appendix. Impression dictated by: Howard Beltran M.D. 12/15/2024 7:08 PM Dictation Location: [facility] Electronically authenticated by: [id number] Y Date: 12/15/2024 19:08
[2024-12-15 19:13] VITALS: BP 116/78; PULSE 98; TEMP 39.1; O2SAT 97
[2024-12-15] MEDS: KETOROLAC TROMETHAMINE 30 MG/ML VIAL IVP (19:25)
[2024-12-15] MEDS: DEXAMETHASONE SOD PHOS 10 MG/ML VIAL IV (19:25)
[2024-12-15] MEDS: ACETAMINOPHEN 500 MG TABLET 1000 MG PO (19:25)
[2024-12-15 20:23] VITALS: BP 100/56; PULSE 88; TEMP 37.9; O2SAT 96
== END 2024-12-15 20:30 | disposition home or self-care (01) ==
PROVIDERS: Nurse Practitioner Family; Emergency Provider Emergency Medicine
DX: R10.31 Right lower quadrant pain (principal); R50.9 Fever, unspecified; R11.2 Nausea with vomiting, unspecified; R10.32 Left lower quadrant pain
CPT/HCPCS: 36415; 74177; 80053; 81003; 83690; 84703; 85007; 85027; 96361; 96374; 96375; 99285; J1100; J1885; J2405; Q9967